=== PATIENT | female | born 1990 | race African-American/Black ===

== ENCOUNTER 2018-11-24 13:27 | Emergency (ER) | payer SELFPAY ==
[~2018-11-24] VITALS: Ht 162.6 cm; Wt 81.8 kg
[~2018-11-24 13:27] MED LIST: IBUPROFEN600 MG PO; IRON325 M1 PO; KEFLEX250 MG PO; NO; TAM75CAP PO; TYLENOL325 MG PO
[2018-11-24 14:00] VITALS: BP 138/91
[2018-11-24] MEDS ORDERED: SILVER SULFA1 % EX (14:57)
== END 2018-11-24 15:12 | disposition home or self-care (01) | DRG 935 ==
LOC: ED 13:27
PROC: 2W2FX4Z Dressing of Left Hand using Bandage (ICD-10-PCS; principal; 2018-11-24)
DX: T23.102A Burn of first degree of left hand, unspecified site, initial encounter (principal); X11.8XXA Contact with other hot tap-water, initial encounter

== ENCOUNTER 2021-12-06 16:20 | Emergency (ER) | payer OTHER ==
[~2021-12-06] VITALS: Ht 162.6 cm; Wt 77.0 kg
[2021-12-06] VITALS (9 sets, daily range): BP systolic 103–124; BP diastolic 66–76
[~2021-12-06 16:20] MED LIST changes: +SILVER SULFA1 % EX
[2021-12-06] MEDS ORDERED: PRENATA4 PO (16:41)
[2021-12-06 17:20] LABS: IMMATURE GRANULOCYTES 0.1 % (0.0-5.0); MEAN CORPUSCULAR HGB CONC 31.5 g/dL CAL (32.0-36.0); NEUT# 4.09 thou/uL (2.00-7.15); RED BLOOD COUNT 3.92 mill/uL (4.20-5.60)
[2021-12-06 17:34] LABS: BUN 12 mg/dL (7-17); BUN/CREATININE RATIO 14 (12-20 (CALC)); CHLORIDE 103 mmol/l (95-108); CREATININE 0.8 mg/dL (0.5-1.0); GFR FOR AFR.AMER. > 60 ML/MIN (>=60 (CALC)); GFR OTHER RACES > 60 ML/MIN (>=60 (CALC)); POTASSIUM 4.1 mmol/l (3.5-5.1); SGOT/AST 22 u/l (14-36); SODIUM 136 mmol/l (137-146); TOTAL PROTEIN 7.3 g/dL (6.3-8.2)
[2021-12-06 17:37] LABS: HEMATOCRIT 33.7 % (37.0-47.0); HEMOGLOBIN 10.6 g/dl (12.0-16.0)
[2021-12-06 17:50] LABS: ALBUMIN 4.2 g/dL (3.2-5.0); ALKALINE PHOSPHATASE 73 u/l (38-126); ANION GAP 11 (6-22 (CALC)); CARBON DIOXIDE 26 mmol/l (22-30)
[2021-12-06 18:01] LABS: URINE BILIRUBIN - DIPSTICK NEGATIVE (NEGATIVE); URINE BLOOD DIPSTICK NEGATIVE (NEGATIVE); URINE COLOR YELLOW; URINE GLUCOSE - DIPSTICK NEGATIVE (NEGATIVE); URINE KETONE NEGATIVE (NEGATIVE); URINE LEUK ESTERASE NEGATIVE (NEGATIVE); URINE PROTEIN - DIPSTICK NEGATIVE (NEG-TRACE); URINE SPECIFIC GRAVITY 1.015; URINE UROBILINOGEN - DIPSTICK 0.2 E.U./dL (0.2)
[2021-12-06 18:04] LABS: URINE NITRITE - DIPSTICK NEGATIVE (Negative)
[2021-12-06 18:17] LABS: BETA-HCG, QUANT(RESULT NUMBER) 18997 mIU/mL
== END 2021-12-06 18:38 | disposition home or self-care (01) | DRG 833 ==
LOC: ED 16:20
PROVIDERS: Emergency Medicine
DX: O20.0 Threatened abortion (principal); Z3A.08 8 weeks gestation of pregnancy

== ENCOUNTER 2023-03-08 12:49 | Emergency (ER) | payer OTHER ==
[~2023-03-08] VITALS: Ht 162.6 cm; Wt 82.0 kg
[~2023-03-08 12:49] MED LIST changes: +PRENATA4 PO
[2023-03-08 12:59] VITALS: BP 140/73
[2023-03-08 13:33] LABS: URINE BILIRUBIN - DIPSTICK Negative (NEGATIVE); URINE BLOOD DIPSTICK Negative (NEGATIVE); URINE GLUCOSE - DIPSTICK Negative (NEGATIVE); URINE KETONE Negative (NEGATIVE); URINE NITRITE - DIPSTICK Negative (Negative); URINE PROTEIN - DIPSTICK Negative (NEG-TRACE); URINE UROBILINOGEN - DIPSTICK 0.2 E.U./dL (0.2)
[2023-03-08 13:34] LABS: URINE COLOR Dark yellow; URINE LEUK ESTERASE Large (NEGATIVE)
[2023-03-08 13:39] LABS: URINE BACTERIA MODERATE hpf; URINE SQUAMOUS EPITHELIAL CELL MODERATE EPI/hpf (0-FEW)
[2023-03-08] MEDS ORDERED: NITROFURANTN100 M2 PO (15:36)
[2023-03-08 16:03] VITALS: BP 137/75
== END 2023-03-08 15:55 | disposition home or self-care (01) ==
LOC: ED 12:49
PROVIDERS: Emergency Medicine
DX: O23.42 Unspecified infection of urinary tract in pregnancy, second trimester (principal); N39.0 Urinary tract infection, site not specified; Z3A.20 20 weeks gestation of pregnancy; B96.89 Other specified bacterial agents as the cause of diseases classified elsewhere

== ENCOUNTER 2023-08-03 19:31 | Observation (INO) | payer OTHER ==
[~2023-08-03] VITALS: Ht 162.6 cm; Wt 84.0 kg
[~2023-08-03 19:31] MED LIST changes: +NITROFURANTN100 M2 PO
--- NOTE | 2023-08-03 19:45 | NUR ---
PATIENT TO ROOM 8 FOR BEDSIDE TRIAGE
--- NOTE | 2023-08-03 20:00 | NUR ---
PATIENT RESTING IN CHAIR WITH SON IN ARMS. NO APPARENT DISTRESS. DENIES ANY CURRENT NEEDS. CALL LIGHT ERYN MORTENSEN.
[2023-08-03] MEDS ORDERED: SODIUM CHLORIDE 0.9% 1,000 ML IV STA (20:12)
[2023-08-03] MEDS ORDERED: KETOROLAC TROMETHAMINE 30 MG/ML SDV IV ONE (20:15)
[2023-08-03] MEDS ORDERED: ACETAMINOPHEN 500 MG TAB PO ONE (20:15)
[2023-08-03 20:27] LABS: BASO% 0.3 % (0-3); EOS% 1.5 % (0-8); HEMATOCRIT 33.9 % (37.0-47.0); HEMOGLOBIN 9.7 g/dl (12.0-16.0); IMMATURE GRANULOCYTES 0.2 % (0.0-5.0); LYMPH% 16.8 % (15-41); MEAN CORPUSCULAR HGB 20.3 pG CALC (26.0-32.0); MEAN CORPUSCULAR HGB CONC 28.6 g/dL CAL (32.0-36.0); MONO% 5.3 % (2-13); NEUT# 8.66 thou/uL (2.00-7.15); NEUT% 75.9 % (42-76); RED BLOOD COUNT 4.79 mill/uL (4.20-5.60); RED CELL DISTRI WIDTH 20.5 % (11.5-15.5)
[2023-08-03 20:29] LABS: URINE BLOOD DIPSTICK Negative (NEGATIVE); URINE GLUCOSE - DIPSTICK Negative (NEGATIVE); URINE KETONE Trace mg/dL (NEGATIVE); URINE NITRITE - DIPSTICK Negative (Negative); URINE PH 6.5 (4.5-8.0); URINE PROTEIN - DIPSTICK Trace mg/dL (NEG-TRACE); URINE SPECIFIC GRAVITY 1.025
[2023-08-03 20:30] LABS: MEAN CELL VOLUME 70.8 fL CALC (80.0-100.0)
[2023-08-03 20:31] LABS: URINE COLOR Yellow; URINE LEUK ESTERASE Large (NEGATIVE)
[2023-08-03 20:54] LABS: URINE BACTERIA FEW hpf; URINE MUCUS FEW hpf (NONE-FEW); URINE RBC 0-2 RBC/hpf (0-5); URINE SQUAMOUS EPITHELIAL CELL FEW EPI/hpf (0-FEW)
[2023-08-03 21:13] LABS: ALBUMIN 3.8 g/dL (3.2-5.0); CREATININE 0.9 mg/dL (0.5-1.0); POTASSIUM 3.9 mmol/l (3.5-5.1); TOTAL PROTEIN 7.9 g/dL (6.3-8.2)
[2023-08-03 21:14] LABS: BILIRUBIN, TOTAL 0.4 mg/dL (0.02-1.3)
[2023-08-03] MEDS ORDERED: LACTATED RINGER'S 1,000 ML IV ONE (21:25)
[2023-08-03] MEDS ORDERED: PROMETHAZINE HCL 25 MG/ML AMP IV ONE (21:25)
[2023-08-03] MEDS ORDERED: SODIUM CHLORIDE 0.9% 1,000 ML IV PRN (22:30)
[2023-08-03] MEDS ORDERED: ONDANSETRON HCl 4 MG/2 ML SDV IV PRN (22:30)
[2023-08-03] MEDS ORDERED: PIPERACILLIN Sodium-Tazobactam 3.375 GM in SODIUM CHLORIDE 0.9% 100 ML IV STA (22:30)
[2023-08-03] MEDS ORDERED: FAMOTIDINE 10MG/ML 2ML SDV IV PRN (22:30)
[2023-08-03] MEDS ORDERED: PROMETHAZINE HCL 25 MG/ML AMP IV PRN (22:30)
[2023-08-03] MEDS ORDERED: MORPHINE SULFATE 4 MG/ML VIAL IV PRN (22:30)
--- NOTE | 2023-08-03 22:36 | NUR ---
PATIENT AWAITING ROOM ASSIGNMENT
--- NOTE | 2023-08-03 23:00 | NUR ---
PATIENT TO STAY IN ED ROOM 8 MED SURG OVERFLOW, PATIENT SCHEDULED FOR LAPARASCOPIC APPENDECTOMY IN AM. PROVIDED WITH FULL SIZE HOSPITAL BED AND NOTIFIED OF POC.
[2023-08-04] VITALS (7 sets, daily range): BP systolic 113–136; BP diastolic 72–82
[2023-08-04] MEDS ORDERED: SODIUM CHLORIDE 0.9% 1,000 ML IV ONE (05:18)
[2023-08-04] MEDS ORDERED: LIDOcaine HCl 1% (Local Anesth.) 20 ML VIAL ONE (05:18)
[2023-08-04] MEDS ORDERED: STERILE WATER FOR IRRIGATION 1,000 ML BTL IR ONE (05:18)
[2023-08-04] MEDS ORDERED: FAMOTIDINE 10MG/ML 2ML SDV IV ONE (05:32)
[2023-08-04] MEDS ORDERED: PIPERACILLIN Sodium-Tazobactam 3.375 GM VIAL IV ONE (05:32)
[2023-08-04] MEDS ORDERED: LACTATED RINGER'S 1,000 ML IV ONE (05:32)
[2023-08-04] MEDS ORDERED: SODIUM CHLORIDE 0.9% 10 ML SYR ONE (05:33)
[2023-08-04] MEDS ORDERED: SODIUM CHLORIDE 0.9% 100 ML IV ONE (05:34)
--- NOTE | 2023-08-04 05:35 | NUR ---
PATIENT TRANSPORTED TO OR BY OR STAFF.
[2023-08-04] MEDS ORDERED: PIPERACILLIN Sodium-Tazobactam 3.375 GM in SODIUM CHLORIDE 0.9% 100 ML IV SCH (06:00)
[2023-08-04] MEDS ORDERED: PERCOCET 5/321 COMBO PO (06:35)
--- NOTE | 2023-08-04 07:04 | NUR ---
REPORT GIVEN TO Chikis GASPAR
--- NOTE | 2023-08-04 07:20 | NUR ---
PT ARRIVED TO THE UNIT FROM PACU ACCOMPANIED BY 2 NURSES, BEDSIDE REPORT GIVEN, PT DENIES ANY PAIN AT THIS TIME, PT CONNECTED TO VITAL MACHINE, SAFETY MEASURES IN PLACE, CALL [facility] WITHIN REACH
--- NOTE | 2023-08-04 08:45 | NUR ---
PT DROWSY BUT AROUSES EASILY TO VERBAL STIMULI, PT ORIENTED X 3, PUPILS PERRL, LUNG SOUNDS CLEAR, STRONG RADIAL AND PEDAL PULSES, SCDS IN PLACE POST OP, BOWEL SOUNDS ARE ACTIVE, NO BLEEDING FROM OP SITES, PATIENT DENIES ANY PAIN AT THIS TIME, PT ORIENTED TO THE CALL [facility] SYSTEM, SAFETY MEASURES ARE IN PLACE, CALL [facility] WITHIN REACH
--- NOTE | 2023-08-04 09:35 | NUR ---
PT ASSISTED TO THE RESTROOM, PT AMBULATED WITH A STEADY GAIT, PT TOLERATED WELL, DENIES ANY PAIN AT THIS TIME, PT REMINDED TO CALL FOR ASSISTANCE WITH GETTING UP, PT VERBALIZED UNDERSTANDING.
--- NOTE | 2023-08-04 10:45 | NUR ---
PT RESTING WITH EYES CLOSED, AROUSED TO VERBAL STIMULI, DENIES ANY NEEDS AT THIS TIME, CALL [facility] WITHIN REACH
--- NOTE | 2023-08-04 11:40 | NUR ---
FAMILY AT BEDSIDE, PT DENIES ANY PAIN AT THIS TIME, CALL [facility] WITHIN REACH
--- NOTE | 2023-08-04 12:15 | NUR ---
PT SITTING UP IN BED HOLDING BABY, DENIES ANY PAIN, CALL [facility] WITHIN REACH
[2023-08-04] MEDS ORDERED: DEXAMETHASONE SODIUM PHOSPHATE PF 10 MG/ML SDV IV ONE (13:33)
[2023-08-04] MEDS ORDERED: LIDOCAINE HCL 2% 2ML SDV IV ONE (13:33)
[2023-08-04] MEDS ORDERED: PROPOFOL 200 MG/20 ML VIAL IV ONE (13:33)
[2023-08-04] MEDS ORDERED: ONDANSETRON HCl 4 MG/2 ML SDV IV ONE (13:33)
[2023-08-04] MEDS ORDERED: KETOROLAC TROMETHAMINE 30 MG/ML SDV IV ONE (13:33)
[2023-08-04] MEDS ORDERED: SUGAMMADEX SODIUM 200 MG/2 ML SDV IV ONE (13:33)
[2023-08-04] MEDS ORDERED: ROCURONIUM BROMIDE 10 MG/ML 5ML VIAL IV ONE (13:33)
[2023-08-04] MEDS ORDERED: SUCCINYLCHOLINE CHLORIDE 20 MG/ML 10ML VIAL IV ONE (13:33)
--- NOTE | 2023-08-04 13:50 | NUR ---
Discharge instructions given. Patient verbalizes understanding of same. Discharged in stable condition via Wheelchair to Home with family. All belongings sent with pt.
--- NOTE | 2023-08-06 14:58 | NUR ---
Discharge follow up call completed 08/05/24. Pt states she is doing well and has had no issues since discharge. Pt has prescribed medication and plans to call her PCP today to schedule a follow up appointment. No needs or concerns verbalized at this time.
== END 2023-08-04 13:50 | disposition home or self-care (01) ==
LOC: ED 19:31 → ED-I 22:13 → ED 22:29 → MS2 22:30 → ED-I 22:30 → MS2 08-04 07:30
PROVIDERS: Family Medicine; ADMIT Surgery; ATTEND Surgery
DX: O99.63 Diseases of the digestive system complicating the puerperium (principal); K35.30 Acute appendicitis with localized peritonitis, without perforation or gangrene; Z20.822 Contact with and (suspected) exposure to COVID-19
CPT/HCPCS: J1100; Q9967